=== PATIENT | male | born 1975 | race Caucasian/White ===

== ENCOUNTER 2017-07-20 09:20 | Inpatient (IN) | payer OTHER ==
[2017-07-20 09:37] VITALS: BMI 27.3
--- NOTE | 2017-07-20 11:36 | HP ---
COWS - Scale Resting Pulse: 0= [place] 80 or Below Sweatin= Chills/Flushing Restless Observation: 1= Difficult to Sit Still Pupil Size: 1= Pupils >than Normal Bone or Joint Aches: 1= Mild Discomfort Runny Nose/ Eye Tearin= Nasal Congestion GI Upset > 30mins: 3= Vomiting/Diarrhea Tremor Observation: 1= Tremor [place], Not Seen Yawning Observation: 1= 1-2x During Session Anxiety or Irritability: 2=Irritable/Anxious Goose Flesh Skin: 3=Piloerection COWS Score: 15 CIWA Score - CIWA Score Nausea/Vomitin Muscle Tremors: 3 Anxiety: 3 Agitation: 2 Paroxysmal Sweats: 1-Minimal Palms Moist Orientation: 0-Oriented Tacttile Disturbances: 1-Very Mild Itch/Numbness Auditory Disturbances: 0-None Visual Disturbances: 0-None Headache: 1-Very Mild CIWA-Ar Total Score: 16 Admission ROS BHS - HPI Chief Complaint: herin and benzodiazepine withdrwal sx Allergies/Adverse Reactions: Allergies Allergy/AdvReac Type Severity Reaction Status Date / Time No Known Allergies Allergy Verified 07/20/17 09:46 History of Present Illness: 41 y o m with h/o polysubstane use: alcohol, heorin and benzodiazepine use disorder with withdrawal sx requiring inpatient detoxification. PMHX depression , anxiety, insmonia, thirsty no siezures or SI no h/o DTS. smoke 1 PPD Exam Limitations: No Limitations - Ebola screening Have you traveled outside of the country in the last 21 days: No Have you had contact with anyone from an Ebola affected area: No Have you been sick,other than usual withdrawal symptoms: No Do you have a fever: No - Review of Systems Constitutional: Chills, Diaphoresis, Malaise, Night Sweats, Weakness, Unintentional Wgt. Loss EENT: reports: Tearing, Nose Congestion Respiratory: reports: No Symptoms reported Cardiac: reports: No Symptoms Reported GI: reports: Diarrhea, Nausea, Poor Appetite, Poor Fluid Intake, Rectal Bleeding , Vomiting, Indigestion : reports: No Symptoms Reported Musculoskeletal: reports: Back Pain, Joint Pain, Muscle Pain Integumentary: reports: Pruritus, Sweating Neuro: reports: Headache, Numbness, Tingling, Tremors Endocrine: reports: Increased Thirst Hematology: reports: No Symptoms Reported Psychiatric: reports: Judgement Intact, Mood/Affect Appropiate, Orientated x3, Anxious, Depressed Other Systems: Reviewed and Negative Patient History - Patient Medical History Hx Anemia: No Hx Asthma: No Hx Chronic Obstructive Pulmonary Disease (COPD): No Hx Cancer: No Hx Cardiac Disorders: No Hx Congestive Heart Failure: No Hx Hypertension: No Hx Hypercholesterolemia: No Hx Pacemaker: No HX Cerebrovascular Accident: No Hx Seizures: No Hx Dementia: No Hx Diabetes: No Hx Gastrointestinal Disorders: No Hx Liver Disease: No Hx Genitourinary Disorders: No Hx Sexually Transmitted Disorders: No Hx Renal Disease (ESRD): No Hx Thyroid Disease: No Hx Human Immunodeficiency Virus (HIV): No Hx Hepatitis C: No Hx Depression: No Hx Suicide Attempt: No Hx Bipolar Disorder: No Hx Schizophrenia: No - Patient Surgical History Past Surgical History: No Anesthesia Reaction: No - PPD History Previous Implant?: Yes Documented Results: Negative w/o proof PPD to be Administered?: Yes - Reproductive History Patient is a Female of Child Bearing Age (11 -55 yrs old): No Patient : No - Smoking Cessation Smoking history: Current every day smoker Have you smoked in the past 12 months: Yes Aproximately how many cigarettes per day: 20 Hx Chewing Tobacco Use: No Initiated information on smoking cessation: Yes 'Breaking Loose' booklet given: 07/20/17 - Substance & Tx. History Hx Alcohol Use: Yes Hx Substance Use: Yes Substance Use Type: Alcohol, Cocaine, Heroin, Marijuana, Opiates, Prescribed, Tranquilizers Hx Substance Use Treatment: Yes ([facility] 2008) - Substances Abused Alcohol Route: Oral Frequency: Daily Amount used: kay reynolds(1 pt)/malt liquor(1-40oz) Age of first use: 17 Date of Last Use: 07/18/17 Heroin Route: Injection Frequency: Daily Amount used: 15 bags Age of first use: 17 Date of Last Use: 07/19/17 Cocaine Route: Injection Frequency: Daily Amount used: $40 Age of first use: 20 Alprazolam (Xanax) Route: Oral Frequency: Daily Amount used: 2 stiks Age of first use: 22 Date of Last Use: 07/18/17 Family Disease History - Family Disease History Family History: Denies Family Disease History: Other: Grandparent (alcoholism) Admission Physical Exam BHS - Vital Signs Vital Signs: Vital Signs - 24 hr 07/20/17 09:35 Temperature 97.7 F Pulse Rate 67 Respiratory 18 Rate Blood Pressure 103/67 - Physical General Appearance: Yes: Nourished, Appropriately Dressed, Disheveled, Mild Distress, Tremorous, Irritable, Sweating, Anxious HEENTM: Yes: Within Normal Limits, EOMI, Hearing grossly Normal, Normal ENT Inspection, Normocephalic, Normal Voice, CHRISTIAN, Pharynx Normal, Nasal Congestion , Rhinorrhea Respiratory: Yes: Within Normal Limits, Chest Non-Tender, Lungs Clear, Normal Breath Sounds, No Respiratory Distress, No Accessory Muscle Use Neck: Yes: Within Normal Limits, No masses,lesions,Nodules, Supple, Trachea in good position Breast: Yes: Breast Exam Deferred Cardiology: Yes: Within Normal Limits, Regular Rhythm, Regular Rate, S1, S2 Abdominal: Yes: Within Normal Limits, Normal Bowel Sounds, Non Tender, Flat, Soft, Increased Bowel Sounds Genitourinary: Yes: Within Normal Limits Back: Yes: Normal Inspection, Muscle Spasm Musculoskeletal: Yes: full range of Motion, Gait Steady, Pelvis Stable, Back pain Extremities: Yes: Normal Capillary Refill, Normal Range of Motion, Non-Tender, Tremors Neurological: Yes: Within Normal Limits, freelance displayer II-XII NML intact, Fully Oriented, Alert, Motor Strength 5/5, Normal Response, Depressed Affect Lymphatic: Yes: Within Normal Limits - Addiitonal Findings: withdrawal sx - Diagnostic (1) Alcohol dependence with uncomplicated withdrawal Current Visit: Yes Status: Acute (2) Opioid dependence with withdrawal Current Visit: Yes Status: Acute (3) Sedative, hypnotic or anxiolytic dependence with withdrawal, uncomplicated Current Visit: Yes Status: Acute (4) Nicotine dependence Current Visit: Yes Status: Acute (5) Cannabis abuse Current Visit: Yes Status: Acute (6) Dehydration Current Visit: Yes Status: Acute (7) Depression Current Visit: Yes Status: Acute Cleared for Admission [facility] - Detox or Rehab [facility] Level of Care: Medically Managed Detox Regimen/Protocol: Methadone/Valium [facility] Breath Alcohol Content Breath Alcohol Content: 0 Urine Drug Screen - Results Drug Screen Negative: No Urine Drug Screen Results: LOLLY-Cocaine, OPI-Opiates, BZO-Benzodiazepines, OXY- Oxycodone
[2017-07-20] MEDS ORDERED: P-EPHED 60MG/TRIPROLIDI 2.5MG TABLET PO PRN (11:39)
[2017-07-20] MEDS ORDERED: MAGNESIUM HYDROX 2400MG/30ML ORAL SUSPENSION 30 ML CUP PO PRN (11:39)
[2017-07-20] MEDS ORDERED: hydrOXYzine PAMOATE 50 MG CAPSULE (FP) PO PRN (11:39)
[2017-07-20] MEDS ORDERED: MENTHOL/PHENOL 1 EACH UD MM PRN (11:39)
[2017-07-20] MEDS ORDERED: ACETAMINOPHEN 325 MG TABLET (FP) PO PRN (11:39)
[2017-07-20] MEDS ORDERED: MAGNESIUM CITRATE 300 ML BOTTLE PO PRN (11:39)
[2017-07-20] MEDS ORDERED: guaiFENesin/D-METHORPHAN HB 10 ML UNIT-DOSE CUPS PO PRN (11:39)
[2017-07-20] MEDS ORDERED: MAG HYDROX/AL HYDROX/SIMETH 30 ML UNIT-DOSE CUP PO PRN (11:39)
[2017-07-20] MEDS ORDERED: NICOTINE POLACRILEX 4 MG GUM BUC PRN (11:39)
[2017-07-20] MEDS ORDERED: LOPERAMIDE HCL 2 MG CAPSULE PO PRN (11:39)
[2017-07-20] MEDS ORDERED: IBUPROFEN 400 MG TABLET (FP) PO PRN (11:39)
[2017-07-20] MEDS ORDERED: METHADONE HCL 10 MG TABLET (FOR DETOX USE ONLY) PO ONE ×2 (12:25→23:00)
[2017-07-20] MEDS ORDERED: diazePAM 5 MG TABLET PO ONE (12:25)
[2017-07-20] MEDS: NICOTINE 21 MG/24 HOURS TOPICAL PATCH TD SCH (13:04)
[2017-07-20] MEDS: diazePAM 5 MG TABLET PO SCH ×2 (15:17→22:28)
--- NOTE | 2017-07-20 16:16 | CONSULT ---
[facility] Psychiatric Consult - Data Date of interview: 07/20/17 Admission source: [facility] Identifying data: Pt. is a 41 year old single male, father of two, and currently unemployed. This is patient's first admission to [facility]. Pt. admitted to [facility] for heroin, cocaine, alcohol and xanac dependence. Substance Abuse History: Following information confirmed with Mr. Mcdowell: Smoking Cessation. Smoking history: Current every day smoker. Have you smoked in the past 12 months: Yes. Aproximately how many cigarettes per day: 20. Hx Chewing Tobacco Use: No. Initiated information on smoking cessation: Yes. ' Breaking Loose' booklet given: 07/20/17. - Substance & Tx. History. Hx Alcohol Use: Yes. Hx Substance Use: Yes. Substance Use Type: Alcohol, Cocaine , Heroin, Marijuana, Opiates, Prescribed, Tranquilizers. Hx Substance Use Treatment: Yes ([facility] 2008). - Substances Abused. Alcohol. Route: Oral. Frequency: Daily. Amount used: kay reynolds(1 pt)/[employer] liquor(1-40oz). Age of first use: 17. Date of Last Use: 07/18/17. Heroin. Route: Injection. Frequency: Daily. Amount used: 15 bags. Age of first use: 17. Date of Last Use: 07/19/17. Cocaine. Route: Injection. Frequency: Daily. Amount used: $40. Age of first use: 20. Alprazolam (Xanax). Route: Oral. Frequency: Daily. Amount used: 2 stiks. Age of first use: 22. Date of Last Use: 07/18/17 Medical History: Denies. Psychiatric History: Pt. denies h/o psychiatric hospitalizations, suicide attempts, and outpatient care. Physical/Sexual Abuse/Trauma History: Denies. Mental Status Exam - Mental Status Exam Alert and Oriented to: Time, Place, Person Cognitive Function: Good Patient Appearance: Well Groomed Mood: Euthymic Affect: Mood Congruent Patient Behavior: Appropriate, Cooperative Speech Pattern: Appropriate Voice Loudness: Normal Thought Process: Goal Oriented Thought Disorder: Not Present Hallucinations: Denies Suicidal Ideation: Denies Homicidal Ideation: Denies Insight/Judgement: Poor Sleep: Poorly Appetite: Fair Muscle strength/Tone: Normal Gait/Station: Normal Psychiatric Findings - Problem List ([place] 1, 2,3) (1) Insomnia Current Visit: Yes Status: Acute (2) Alcohol dependence with uncomplicated withdrawal Current Visit: Yes Status: Acute (3) Nicotine dependence Current Visit: Yes Status: Acute (4) Opioid dependence with withdrawal Current Visit: Yes Status: Acute (5) Sedative, hypnotic or anxiolytic dependence with withdrawal, uncomplicated Current Visit: Yes Status: Acute - Initial Treatment Plan Initial Treatment Plan: Psychoeducation provided. Detoxification in progress. Benadryl 50mg qhs ordered. Benefits and side effects discussed. Verbal consent given. Will continue to monitor.
[2017-07-20 16:53] LABS: URINE APPEARANCE CLEAR; URINE BILIRUBIN NEGATIVE (NEGATIVE); URINE BLOOD NEGATIVE (NEGATIVE); URINE COLOR LTYELLOW; URINE GLUCOSE (UA) NEGATIVE (NEGATIVE); URINE KETONE NEGATIVE (NEGATIVE); URINE LEUK ESTERASE NEGATIVE (NEGATIVE); URINE NITRITE NEGATIVE (NEGATIVE); URINE PROTEIN NEGATIVE (NEGATIVE); URINE UROBILINOGEN NEGATIVE mg/dL (0.2-1.0)
[2017-07-20] MEDS: diazePAM 5 MG TABLET PO PRN (16:58)
[2017-07-20] MEDS: THIAMINE HCL 100 MG TABLET (FP) PO SCH (22:28)
[2017-07-20] MEDS: diphenhydrAMINE HCL 50 MG CAPSULE PO PRN (22:29)
[2017-07-21] MEDS: diazePAM 5 MG TABLET PO SCH ×3 (05:24→21:52)
[2017-07-21] MEDS: diazePAM 5 MG TABLET PO PRN ×3 (07:31→17:42)
[2017-07-21] MEDS ORDERED: METHADONE HCL 10 MG TABLET (FOR DETOX USE ONLY) PO SCH (10:00)
[2017-07-21 10:11] LABS: CHLORIDE 106 mmol/L (98-107); POTASSIUM 4.5 mmol/L (3.5-5.1); SODIUM 138 mmol/L (136-145)
[2017-07-21 10:13] LABS: HEMATOCRIT 40.5 % (35.4-49); HEMOGLOBIN 13.2 GM/dL (11.7-16.9); MCH 27.7 pg (25.7-33.7); MCHC 32.5 g/dl (32.0-35.9); MEAN CELL VOLUME 85.3 fl (80-96); MEAN PLT VOLUME 9.6 fl (7.5-11.1); PLATELET COUNT 283 K/MM3 (134-434); RBC 4.76 M/mm3 (4.00-5.60); RDW 13.8 % (11.9-15.9); WHITE BLOOD COUNT 5.2 K/mm3 (4.0-10.0)
[2017-07-21] MEDS: PRENATAL VITAMINS W/ FOLIC ACID TABLET (FP) PO SCH (10:23)
[2017-07-21] MEDS: NICOTINE 21 MG/24 HOURS TOPICAL PATCH TD SCH (10:23)
[2017-07-21 10:36] LABS: ALK PHOS 73 U/L (45-117); ANION GAP 5 (8-16); BILIRUBIN,TOTAL 0.3 mg/dL (0.2-1.0); BLOOD UREA NITROGEN 18 mg/dL (7-18); CALCIUM 8.7 mg/dL (8.5-10.1); CO2 27 mmol/L (21-32); CREATININE 1.1 mg/dL (0.7-1.3); GLUCOSE,RANDOM 101 mg/dL (74-106); SGOT/AST 16 U/L (15-37); SGPT/ALT 24 U/L (12-78); TOT PROT 7.9 g/dl (6.4-8.2)
[2017-07-21 11:02] LABS: SICKLE CELL SCREEN NEGATIVE (NEGATIVE)
--- NOTE | 2017-07-21 21:24 | PN ---
S CIWA - CIWA Score Nausea/Vomitin Muscle Tremors: 3 Anxiety: 3 Agitation: 3 Paroxysmal Sweats: 3 Orientation: 0-Oriented Tacttile Disturbances: 0-None Auditory Disturbances: 0-None Visual Disturbances: 0-None Headache: 0-None Present CIWA-Ar Total Score: 15 BHS COWS - Scale Resting Pulse: 1= [place] 81-100 Sweatin=Flushed/Facial Moisture Restless Observation: 1= Difficult to Sit Still Pupil Size: 0= Normal to Room Light Bone or Joint Aches: 1= Mild Discomfort Runny Nose/ Eye Tearin= Nasal Congestion GI Upset > 30mins: 1= Stomach Cramp Tremor Observation of Outstretched Hands: 2= Slight Tremor Visible Yawning Observation: 1= 1-2x During Session Anxiety or Irritability: 2=Irritable/Anxious Goose Flesh Skin: 0=Smooth Skin COWS Score: 12 S Progress Note (SOAP) Subjective: tremors sweats abd cramp Objective: 07/21/17 21:22 Vital Signs 07/21/17 07/21/17 14:52 18:15 Temperature 99.3 F 97.9 F Pulse Rate 88 64 Respiratory 18 18 Rate Blood Pressure 116/71 125/60 Laboratory Last Values WBC 5.2 K/mm3 (4.0-10.0) 07/21/17 06:20 RBC 4.76 M/mm3 (4.00-5.60) 07/21/17 06:20 Hgb 13.2 GM/dL (11.7-16.9) 07/21/17 06:20 Hct 40.5 % (35.4-49) 07/21/17 06:20 MCV 85.3 fl (80-96) 07/21/17 06:20 MCH 27.7 pg (25.7-33.7) 07/21/17 06:20 MCHC 32.5 g/dl (32.0-35.9) 07/21/17 06:20 RDW 13.8 % (11.9-15.9) 07/21/17 06:20 Plt Count 283 K/MM3 (134-434) 07/21/17 06:20 MPV 9.6 fl (7.5-11.1) 07/21/17 06:20 Sickle Cell Screen Negative (NEGATIVE) 07/21/17 06:20 Sodium 138 mmol/L (136-145) 07/21/17 06:20 Potassium 4.5 mmol/L (3.5-5.1) 07/21/17 06:20 Chloride 106 mmol/L (98-107) 07/21/17 06:20 Carbon Dioxide 27 mmol/L (21-32) 07/21/17 06:20 Anion Gap 5 (8-16) L 07/21/17 06:20 BUN 18 mg/dL (7-18) 07/21/17 06:20 Creatinine 1.1 mg/dL (0.7-1.3) 07/21/17 06:20 Creat Clearance w eGFR > 60 (>60) 07/21/17 06:20 Random Glucose 101 mg/dL (74-106) 07/21/17 06:20 Calcium 8.7 mg/dL (8.5-10.1) 07/21/17 06:20 Total Bilirubin 0.3 mg/dL (0.2-1.0) 07/21/17 06:20 AST 16 U/L (15-37) 07/21/17 06:20 ALT 24 U/L (12-78) 07/21/17 06:20 Alkaline Phosphatase 73 U/L (45-117) 07/21/17 06:20 Total Protein 7.9 g/dl (6.4-8.2) 07/21/17 06:20 Albumin 4.0 g/dl (3.4-5.0) 07/21/17 06:20 Urine Color Ltyellow 07/20/17 14:45 Urine Appearance Clear 07/20/17 14:45 Urine pH 6.0 (5.0-8.0) 07/20/17 14:45 Ur Specific [place] 1.013 (1.001-1.035) 07/20/17 14:45 Urine Protein Negative (NEGATIVE) 07/20/17 14:45 Urine Glucose (UA) Negative (NEGATIVE) 07/20/17 14:45 Urine Ketones Negative (NEGATIVE) 07/20/17 14:45 Urine Blood Negative (NEGATIVE) 07/20/17 14:45 Urine Nitrite Negative (NEGATIVE) 07/20/17 14:45 Urine Bilirubin Negative (NEGATIVE) 07/20/17 14:45 Urine Urobilinogen Negative mg/dL (0.2-1.0) 07/20/17 14:45 Ur Leukocyte Esterase Negative (NEGATIVE) 07/20/17 14:45 RPR Titer Nonreactive (NONREACTIVE) 07/21/17 06:20 Hepatitis C Antibody <0.1 s/co ratio (0.0-0.9) 07/20/17 11:50 labs noted Assessment: 07/21/17 21:24 withdrawal sx Plan: continue detox
[2017-07-21] MEDS: diphenhydrAMINE HCL 50 MG CAPSULE PO PRN (21:52)
[2017-07-21] MEDS: THIAMINE HCL 100 MG TABLET (FP) PO SCH (21:52)
[2017-07-22] MEDS: diazePAM 5 MG TABLET PO PRN ×4 (03:17→17:28)
[2017-07-22] MEDS: diazePAM 5 MG TABLET PO SCH ×2 (10:13→22:12)
[2017-07-22] MEDS: PRENATAL VITAMINS W/ FOLIC ACID TABLET (FP) PO SCH (10:13)
[2017-07-22] MEDS: METHADONE HCL 5 MG TABLET (FOR DETOX USE ONLY) PO SCH (10:13)
[2017-07-22] MEDS: NICOTINE 21 MG/24 HOURS TOPICAL PATCH TD SCH (10:13)
--- NOTE | 2017-07-22 14:47 | PN ---
[facility] CIWA - CIWA Score Nausea/Vomitin-No Nausea/No Vomiting Muscle Tremors: 4-Moderate,w/Arms Extend Anxiety: 3 Agitation: 4-Moderately Restless Paroxysmal Sweats: 1-Minimal Palms Moist Orientation: 0-Oriented Tacttile Disturbances: 0-None Auditory Disturbances: 0-None Visual Disturbances: 0-None Headache: 0-None Present CIWA-Ar Total Score: 12 BHS COWS - Scale Resting Pulse: 0= [place] 80 or Below Sweatin= Chills/Flushing Restless Observation: 1= Difficult to Sit Still Pupil Size: 0= Normal to Room Light Bone or Joint Aches: 2= Severe Diffuse Aches Runny Nose/ Eye Tearin= Nasal Congestion GI Upset > 30mins: 1= Stomach Cramp Tremor Observation of Outstretched Hands: 2= Slight Tremor Visible Yawning Observation: 0= None Anxiety or Irritability: 2=Irritable/Anxious Goose Flesh Skin: 0=Smooth Skin COWS Score: 10 S Progress Note (SOAP) Subjective: sweat tremor anxiety restlessness irritable joint ache Objective: 07/22/17 14:46 Vital Signs Temperature 98.4 F 07/22/17 14:19 Pulse Rate 72 07/22/17 14:19 Respiratory Rate 20 07/22/17 14:19 Blood Pressure 108/64 07/22/17 14:19 O2 Sat by Pulse Oximetry (%) Laboratory Last Values WBC 5.2 K/mm3 (4.0-10.0) 07/21/17 06:20 RBC 4.76 M/mm3 (4.00-5.60) 07/21/17 06:20 Hgb 13.2 GM/dL (11.7-16.9) 07/21/17 06:20 Hct 40.5 % (35.4-49) 07/21/17 06:20 MCV 85.3 fl (80-96) 07/21/17 06:20 MCH 27.7 pg (25.7-33.7) 07/21/17 06:20 MCHC 32.5 g/dl (32.0-35.9) 07/21/17 06:20 RDW 13.8 % (11.9-15.9) 07/21/17 06:20 Plt Count 283 K/MM3 (134-434) 07/21/17 06:20 MPV 9.6 fl (7.5-11.1) 07/21/17 06:20 Sickle Cell Screen Negative (NEGATIVE) 07/21/17 06:20 Sodium 138 mmol/L (136-145) 07/21/17 06:20 Potassium 4.5 mmol/L (3.5-5.1) 07/21/17 06:20 Chloride 106 mmol/L (98-107) 07/21/17 06:20 Carbon Dioxide 27 mmol/L (21-32) 07/21/17 06:20 Anion Gap 5 (8-16) L 07/21/17 06:20 BUN 18 mg/dL (7-18) 07/21/17 06:20 Creatinine 1.1 mg/dL (0.7-1.3) 07/21/17 06:20 Creat Clearance w eGFR > 60 (>60) 07/21/17 06:20 Random Glucose 101 mg/dL (74-106) 07/21/17 06:20 Calcium 8.7 mg/dL (8.5-10.1) 07/21/17 06:20 Total Bilirubin 0.3 mg/dL (0.2-1.0) 07/21/17 06:20 AST 16 U/L (15-37) 07/21/17 06:20 ALT 24 U/L (12-78) 07/21/17 06:20 Alkaline Phosphatase 73 U/L (45-117) 07/21/17 06:20 Total Protein 7.9 g/dl (6.4-8.2) 07/21/17 06:20 Albumin 4.0 g/dl (3.4-5.0) 07/21/17 06:20 Urine Color Ltyellow 07/20/17 14:45 Urine Appearance Clear 07/20/17 14:45 Urine pH 6.0 (5.0-8.0) 07/20/17 14:45 Ur Specific [place] 1.013 (1.001-1.035) 07/20/17 14:45 Urine Protein Negative (NEGATIVE) 07/20/17 14:45 Urine Glucose (UA) Negative (NEGATIVE) 07/20/17 14:45 Urine Ketones Negative (NEGATIVE) 07/20/17 14:45 Urine Blood Negative (NEGATIVE) 07/20/17 14:45 Urine Nitrite Negative (NEGATIVE) 07/20/17 14:45 Urine Bilirubin Negative (NEGATIVE) 07/20/17 14:45 Urine Urobilinogen Negative mg/dL (0.2-1.0) 07/20/17 14:45 Ur Leukocyte Esterase Negative (NEGATIVE) 07/20/17 14:45 RPR Titer Nonreactive (NONREACTIVE) 07/21/17 06:20 Hepatitis C Antibody <0.1 s/co ratio (0.0-0.9) 07/20/17 11:50 lab noted Assessment: 07/22/17 14:46 withdrawal sx Plan: continue detox
[2017-07-22] MEDS: THIAMINE HCL 100 MG TABLET (FP) PO SCH (22:12)
[2017-07-23] MEDS: diazePAM 5 MG TABLET PO PRN ×2 (02:28→06:49)
[2017-07-23] MEDS: NICOTINE 21 MG/24 HOURS TOPICAL PATCH TD SCH (10:23)
[2017-07-23] MEDS: PRENATAL VITAMINS W/ FOLIC ACID TABLET (FP) PO SCH (10:23)
[2017-07-23] MEDS: diazePAM 5 MG TABLET PO SCH (10:23)
[2017-07-23] MEDS: METHADONE HCL 5 MG TABLET (FOR DETOX USE ONLY) PO SCH (10:23)
--- NOTE | 2017-07-23 10:59 | PN ---
BHS Progress Note (SOAP) Subjective: joint ache sweat tremor restlessness Objective: 07/23/17 10:58 Vital Signs Temperature 97.7 F 07/23/17 07:19 Pulse Rate 52 L 07/23/17 07:19 Respiratory Rate 16 07/23/17 07:19 Blood Pressure 94/63 07/23/17 07:19 O2 Sat by Pulse Oximetry (%) Laboratory Last Values WBC 5.2 K/mm3 (4.0-10.0) 07/21/17 06:20 RBC 4.76 M/mm3 (4.00-5.60) 07/21/17 06:20 Hgb 13.2 GM/dL (11.7-16.9) 07/21/17 06:20 Hct 40.5 % (35.4-49) 07/21/17 06:20 MCV 85.3 fl (80-96) 07/21/17 06:20 MCH 27.7 pg (25.7-33.7) 07/21/17 06:20 MCHC 32.5 g/dl (32.0-35.9) 07/21/17 06:20 RDW 13.8 % (11.9-15.9) 07/21/17 06:20 Plt Count 283 K/MM3 (134-434) 07/21/17 06:20 MPV 9.6 fl (7.5-11.1) 07/21/17 06:20 Sickle Cell Screen Negative (NEGATIVE) 07/21/17 06:20 Sodium 138 mmol/L (136-145) 07/21/17 06:20 Potassium 4.5 mmol/L (3.5-5.1) 07/21/17 06:20 Chloride 106 mmol/L (98-107) 07/21/17 06:20 Carbon Dioxide 27 mmol/L (21-32) 07/21/17 06:20 Anion Gap 5 (8-16) L 07/21/17 06:20 BUN 18 mg/dL (7-18) 07/21/17 06:20 Creatinine 1.1 mg/dL (0.7-1.3) 07/21/17 06:20 Creat Clearance w eGFR > 60 (>60) 07/21/17 06:20 Random Glucose 101 mg/dL (74-106) 07/21/17 06:20 Calcium 8.7 mg/dL (8.5-10.1) 07/21/17 06:20 Total Bilirubin 0.3 mg/dL (0.2-1.0) 07/21/17 06:20 AST 16 U/L (15-37) 07/21/17 06:20 ALT 24 U/L (12-78) 07/21/17 06:20 Alkaline Phosphatase 73 U/L (45-117) 07/21/17 06:20 Total Protein 7.9 g/dl (6.4-8.2) 07/21/17 06:20 Albumin 4.0 g/dl (3.4-5.0) 07/21/17 06:20 Urine Color Ltyellow 07/20/17 14:45 Urine Appearance Clear 07/20/17 14:45 Urine pH 6.0 (5.0-8.0) 07/20/17 14:45 Ur Specific [place] 1.013 (1.001-1.035) 07/20/17 14:45 Urine Protein Negative (NEGATIVE) 07/20/17 14:45 Urine Glucose (UA) Negative (NEGATIVE) 07/20/17 14:45 Urine Ketones Negative (NEGATIVE) 07/20/17 14:45 Urine Blood Negative (NEGATIVE) 07/20/17 14:45 Urine Nitrite Negative (NEGATIVE) 07/20/17 14:45 Urine Bilirubin Negative (NEGATIVE) 07/20/17 14:45 Urine Urobilinogen Negative mg/dL (0.2-1.0) 07/20/17 14:45 Ur Leukocyte Esterase Negative (NEGATIVE) 07/20/17 14:45 RPR Titer Nonreactive (NONREACTIVE) 07/21/17 06:20 Hepatitis C Antibody <0.1 s/co ratio (0.0-0.9) 07/20/17 11:50 lab noted Assessment: 07/23/17 10:58 withdrawal sx Plan: continue detox
[2017-07-23] MEDS ORDERED: diazePAM 5 MG TABLET PO ONE (12:41)
[2017-07-23 13:35] VITALS: BP 115/60; PULSE 77; TEMP 98.6
--- NOTE | 2017-07-23 17:07 | DS ---
[facility] Detox Discharge Summary Admission Date: 07/20/17 Discharge Date: 07/23/17 - History Present History: Alcohol Dependence, Cannabis Dependence, Opioid Dependence, Sedative Dependence - Physical Exam Results Vital Signs: Vital Signs Temperature 98.6 F 07/23/17 13:35 Pulse Rate 77 07/23/17 13:35 Respiratory Rate 18 07/23/17 13:35 Blood Pressure 115/60 07/23/17 13:35 O2 Sat by Pulse Oximetry (%) Pertinent Admission Physical Exam Findings: Vital Signs Temperature 98.6 F 07/23/17 13:35 Pulse Rate 77 07/23/17 13:35 Respiratory Rate 18 07/23/17 13:35 Blood Pressure 115/60 07/23/17 13:35 O2 Sat by Pulse Oximetry (%) Laboratory Last Values WBC 5.2 K/mm3 (4.0-10.0) 07/21/17 06:20 RBC 4.76 M/mm3 (4.00-5.60) 07/21/17 06:20 Hgb 13.2 GM/dL (11.7-16.9) 07/21/17 06:20 Hct 40.5 % (35.4-49) 07/21/17 06:20 MCV 85.3 fl (80-96) 07/21/17 06:20 MCH 27.7 pg (25.7-33.7) 07/21/17 06:20 MCHC 32.5 g/dl (32.0-35.9) 07/21/17 06:20 RDW 13.8 % (11.9-15.9) 07/21/17 06:20 Plt Count 283 K/MM3 (134-434) 07/21/17 06:20 MPV 9.6 fl (7.5-11.1) 07/21/17 06:20 Sickle Cell Screen Negative (NEGATIVE) 07/21/17 06:20 Sodium 138 mmol/L (136-145) 07/21/17 06:20 Potassium 4.5 mmol/L (3.5-5.1) 07/21/17 06:20 Chloride 106 mmol/L (98-107) 07/21/17 06:20 Carbon Dioxide 27 mmol/L (21-32) 07/21/17 06:20 Anion Gap 5 (8-16) L 07/21/17 06:20 BUN 18 mg/dL (7-18) 07/21/17 06:20 Creatinine 1.1 mg/dL (0.7-1.3) 07/21/17 06:20 Creat Clearance w eGFR > 60 (>60) 07/21/17 06:20 Random Glucose 101 mg/dL (74-106) 07/21/17 06:20 Calcium 8.7 mg/dL (8.5-10.1) 07/21/17 06:20 Total Bilirubin 0.3 mg/dL (0.2-1.0) 07/21/17 06:20 AST 16 U/L (15-37) 07/21/17 06:20 ALT 24 U/L (12-78) 07/21/17 06:20 Alkaline Phosphatase 73 U/L (45-117) 07/21/17 06:20 Total Protein 7.9 g/dl (6.4-8.2) 07/21/17 06:20 Albumin 4.0 g/dl (3.4-5.0) 07/21/17 06:20 Urine Color Ltyellow 07/20/17 14:45 Urine Appearance Clear 07/20/17 14:45 Urine pH 6.0 (5.0-8.0) 07/20/17 14:45 Ur Specific [place] 1.013 (1.001-1.035) 07/20/17 14:45 Urine Protein Negative (NEGATIVE) 07/20/17 14:45 Urine Glucose (UA) Negative (NEGATIVE) 07/20/17 14:45 Urine Ketones Negative (NEGATIVE) 07/20/17 14:45 Urine Blood Negative (NEGATIVE) 07/20/17 14:45 Urine Nitrite Negative (NEGATIVE) 07/20/17 14:45 Urine Bilirubin Negative (NEGATIVE) 07/20/17 14:45 Urine Urobilinogen Negative mg/dL (0.2-1.0) 07/20/17 14:45 Ur Leukocyte Esterase Negative (NEGATIVE) 07/20/17 14:45 RPR Titer Nonreactive (NONREACTIVE) 07/21/17 06:20 Hepatitis C Antibody <0.1 s/co ratio (0.0-0.9) 07/20/17 11:50 - Treatment Patient has Accepted a Rehab Referral to: as per patient, he was accepted to [facility] - Medication Discharge Medications: Ambulatory Orders NK [No Known Home Medication] 07/20/17 - Diagnosis (1) Alcohol dependence with uncomplicated withdrawal Current Visit: Yes Status: Acute (2) Cannabis abuse Current Visit: Yes Status: Chronic (3) Nicotine dependence Current Visit: Yes Status: Chronic Qualifiers: Nicotine product type: cigarettes (4) Opioid dependence with withdrawal Current Visit: Yes Status: Acute (5) Sedative, hypnotic or anxiolytic dependence with withdrawal, uncomplicated Current Visit: Yes Status: Acute - AMA Did Patient Leave Against Medical Advice: Yes
[2017-07-24] MEDS ORDERED: METHADONE HCL 10 MG TABLET (FOR DETOX USE ONLY) PO SCH (10:00)
[2017-07-24] MEDS ORDERED: diazePAM 5 MG TABLET PO SCH (10:00)
--- NOTE | 2017-07-24 13:37 | EKG ---
Test Reason : Blood Pressure : / mmHG Vent. Rate : 066 BPM Atrial Rate : 066 BPM P-R Int : 128 ms QRS Dur : 088 ms QT Int : 424 ms P-R-T Axes : 022 042 020 degrees QTc Int : 444 ms NORMAL SINUS RHYTHM NORMAL ECG NO PREVIOUS ECGS AVAILABLE Confirmed by MD Art, José Miguel ([id number]) on 07/24/2017 1:37:14 PM Referred By: Confirmed By:José Miguel Cordova MD
[2017-07-25] MEDS ORDERED: METHADONE HCL 5 MG TABLET (FOR DETOX USE ONLY) PO SCH (06:00)
== END 2017-07-23 17:10 | disposition left against medical advice (07) | DRG 770 ==
LOC: YASAS 09:20 → Y6N 11:51
PROVIDERS: ADMIT Internal Medicine; ATTEND Internal Medicine
PROC: HZ2ZZZZ Detoxification Services for Substance Abuse Treatment (ICD-10-PCS; principal; 2017-07-20)
DX: F11.23 Opioid dependence with withdrawal (principal); F13.230 Sedative, hypnotic or anxiolytic dependence with withdrawal, uncomplicated; F10.230 Alcohol dependence with withdrawal, uncomplicated; F12.20 Cannabis dependence, uncomplicated; F17.210 Nicotine dependence, cigarettes, uncomplicated; G47.00 Insomnia, unspecified
CPT/HCPCS: 36415; 80053; 81003; 85027; 85660; 86593; 86803; 93005; 93010

== ENCOUNTER 2017-07-25 15:19 | Inpatient (IN) | payer OTHER ==
[2017-07-25 15:55] VITALS: BMI 27.3
--- NOTE | 2017-07-25 17:14 | HP ---
Admission ROS [facility] - [facility] Chief Complaint: 41 yo m requesting inpatient rehab for opioid use Allergies/Adverse Reactions: Allergies Allergy/AdvReac Type Severity Reaction Status Date / Time No Known Allergies Allergy Verified 07/25/17 17:06 History of Present Illness: 41 yo m signed out ama last week from detox before completing methadone detox, but was detoxed from benzos and has not used benzodiazepine since, reports herion use and would like to start MAT with suboxone in rehab [facility]. last used heroin today, no benzos no si at this time, no h /o seizures or DTs. c/ insomnia Exam Limitations: No Limitations - Ebola screening Have you traveled outside of the country in the last 21 days: No Have you had contact with anyone from an Ebola affected area: No Have you been sick,other than usual withdrawal symptoms: No - Review of Systems Constitutional: No Symptoms Reported EENT: reports: No Symptoms Reported Respiratory: reports: No Symptoms reported Cardiac: reports: No Symptoms Reported GI: reports: No Symptoms Reported : reports: No Symptoms Reported Musculoskeletal: reports: No Symptoms Reported Integumentary: reports: No Symptoms Reported Endocrine: reports: Increased Thirst Hematology: reports: No Symptoms Reported Psychiatric: reports: Judgement Intact, Mood/Affect Appropiate, Orientated x3, Anxious, Depressed Other Systems: Reviewed and Negative Patient History - Patient Medical History Hx Anemia: No Hx Asthma: No Hx Chronic Obstructive Pulmonary Disease (COPD): No Hx Cancer: No Hx Cardiac Disorders: No Hx Congestive Heart Failure: No Hx Hypertension: No Hx Hypercholesterolemia: No Hx Pacemaker: No HX Cerebrovascular Accident: No Hx Seizures: No Hx Dementia: No Hx Diabetes: No Hx Gastrointestinal Disorders: No Hx Liver Disease: No Hx Genitourinary Disorders: No Hx Sexually Transmitted Disorders: No Hx Renal Disease (ESRD): No Hx Thyroid Disease: No Hx Human Immunodeficiency Virus (HIV): No Hx Hepatitis C: No Hx Depression: No Hx Suicide Attempt: No Hx Bipolar Disorder: No Hx Schizophrenia: No - Patient Surgical History Past Surgical History: No Anesthesia Reaction: No - PPD History Date: 07/22/17 PPD to be Administered?: No - Reproductive History Patient is a Female of Child Bearing Age (11 -55 yrs old): No Patient : No - Smoking Cessation Smoking history: Current every day smoker Have you smoked in the past 12 months: Yes Aproximately how many cigarettes per day: 20 Hx Chewing Tobacco Use: No Initiated information on smoking cessation: Yes 'Breaking Loose' booklet given: 07/25/17 - Substance & Tx. History Hx Alcohol Use: No Hx Substance Use: Yes Substance Use Type: Cocaine, Heroin, Opiates, Prescribed, Tranquilizers Hx Substance Use Treatment: Yes (detox [facility] last week heori and benzos) - Substances Abused Heroin Route: Injection Frequency: Daily Amount used: 3 bags Age of first use: 17 Date of Last Use: 07/25/17 Cocaine Route: Smoking Frequency: 1-2 times per week Amount used: $3 Age of first use: 19 Date of Last Use: 07/23/17 Benzodiazepine (Klonopin) Route: Oral Frequency: 1-3 times last 30 days Amount used: 2-4mg xanax daily Age of first use: 19 Date of Last Use: 06/28/17 Family Disease History - Family Disease History Family Disease History: Other: Grandparent (alcoholism) Admission Physical Exam [facility] - Vital Signs Vital Signs: Vital Signs - 24 hr 07/25/17 15:48 Temperature 98 F Pulse Rate 92 H Respiratory 18 Rate Blood Pressure 132/84 - Physical General Appearance: Yes: Within Normal Limits, No Apparent Distress, Nourished, Appropriately Dressed, Disheveled HEENTM: Yes: Within Normal Limits, EOMI, Hearing grossly Normal, Normal ENT Inspection, Normocephalic, Normal Voice, CHRISTIAN, Pharynx Normal Respiratory: Yes: Within Normal Limits, Chest Non-Tender, Lungs Clear, Normal Breath Sounds, No Respiratory Distress, No Accessory Muscle Use Neck: Yes: Within Normal Limits, No masses,lesions,Nodules, Supple, Trachea in good position Breast: Yes: Breast Exam Deferred Cardiology: Yes: Within Normal Limits, Regular Rhythm, Regular Rate, S1, S2 Abdominal: Yes: Within Normal Limits, Normal Bowel Sounds, Non Tender, Flat, Soft, Increased Bowel Sounds Genitourinary: Yes: Within Normal Limits Back: Yes: Within Normal Limits, Normal Inspection Musculoskeletal: Yes: Within Normal Limits, full range of Motion, Gait Steady, Pelvis Stable Extremities: Yes: Within Normal Limits, Normal Capillary Refill, Normal Inspection, Normal Range of Motion, Non-Tender Neurological: Yes: law writer II-XII NML intact, Fully Oriented, Alert, Motor Strength 5/5, Normal Response, Depressed Affect Integumentary: Yes: Within Normal Limits, Normal Color, Warm, Track Steiner (no infection no abscess) Lymphatic: Yes: Within Normal Limits - Addiitonal Findings: no withdrawal sx noted, dehydrated - Diagnostic (1) Dehydration Current Visit: No Status: Acute (2) Depression Current Visit: No Status: Acute (3) Insomnia Current Visit: No Status: Acute (4) Cannabis abuse Current Visit: No Status: Inactive (5) Nicotine dependence Current Visit: No Status: Chronic Qualifiers: Nicotine product type: cigarettes (6) Opioid dependence Current Visit: Yes Status: Acute (7) Cocaine abuse Current Visit: Yes Status: Acute [facility] Breath Alcohol Content Breath Alcohol Content: 0 Urine Drug Screen - Results Drug Screen Negative: No Urine Drug Screen Results: LOLLY-Cocaine, OPI-Opiates, BZO-Benzodiazepines, MTD- Methadone
[2017-07-25] MEDS ORDERED: LOPERAMIDE HCL 2 MG CAPSULE PO PRN (17:17)
[2017-07-25] MEDS ORDERED: MAG HYDROX/AL HYDROX/SIMETH 30 ML UNIT-DOSE CUP PO PRN (17:17)
[2017-07-25] MEDS ORDERED: ACETAMINOPHEN 325 MG TABLET (FP) PO PRN (17:17)
[2017-07-25] MEDS ORDERED: guaiFENesin/D-METHORPHAN HB 10 ML UNIT-DOSE CUPS PO PRN (17:17)
[2017-07-25] MEDS ORDERED: MAGNESIUM CITRATE 300 ML BOTTLE PO PRN (17:17)
[2017-07-25] MEDS ORDERED: IBUPROFEN 400 MG TABLET (FP) PO PRN (17:17)
[2017-07-25] MEDS ORDERED: MAGNESIUM HYDROX 2400MG/30ML ORAL SUSPENSION 30 ML CUP PO PRN (17:17)
[2017-07-25] MEDS ORDERED: NICOTINE POLACRILEX 4 MG GUM BC PRN (17:17)
[2017-07-25] MEDS ORDERED: P-EPHED 60MG/TRIPROLIDI 2.5MG TABLET PO PRN (17:17)
[2017-07-25] MEDS ORDERED: MENTHOL/PHENOL 1 EACH UD MM PRN (17:17)
[2017-07-25] MEDS ORDERED: ONDANSETRON *ODT* 4 MG TABLET SL PRN (17:19)
[2017-07-25] MEDS ORDERED: COLLOIDAL OATMEAL 1 BAR EACH TP PRN (17:25)
[2017-07-25] MEDS: cloNIDine HCL 0.1 MG TABLET PO SCH (21:54)
[2017-07-25] MEDS: THIAMINE HCL 100 MG TABLET (FP) PO SCH (21:54)
[2017-07-25] MEDS: NAPROXEN 500 MG TABLET (FP) PO SCH (21:54)
[2017-07-25] MEDS: AMITRIPTYLINE HCL 25 MG TABLET (FP) PO SCH (21:54)
[2017-07-25] MEDS: GABAPENTIN 100 MG CAPSULE (FP) PO SCH (21:54)
[2017-07-25] MEDS: CYCLOBENZAPRINE HCL 10 MG TABLET (FP) PO SCH (21:54)
[2017-07-25] MEDS: DOCUSATE SODIUM 100 MG CAPSULE (FP) PO SCH (21:54)
[2017-07-25] MEDS: PANTOPRAZOLE 40 MG TABLET (FP) PO SCH (21:55)
[2017-07-25] MEDS: NICOTINE 21 MG/24 HOURS TOPICAL PATCH TD SCH (21:55)
[2017-07-25] MEDS: HYDROCORTISONE 1% TOPICAL OINT 30 GM TUBE TP SCH (22:00)
[2017-07-26] MEDS: GABAPENTIN 100 MG CAPSULE (FP) PO SCH ×3 (07:00→21:18)
[2017-07-26] MEDS: CYCLOBENZAPRINE HCL 10 MG TABLET (FP) PO SCH ×3 (07:00→21:18)
[2017-07-26 10:08] LABS: HEMATOCRIT 36.4 % (35.4-49); HEMOGLOBIN 12.4 GM/dL (11.7-16.9); MCH 28.8 pg (25.7-33.7); MEAN CELL VOLUME 84.5 fl (80-96); MEAN PLT VOLUME 8.2 fl (7.5-11.1); PLATELET COUNT 233 K/MM3 (134-434); RDW 13.7 % (11.9-15.9); WHITE BLOOD COUNT 4.6 K/mm3 (4.0-10.0)
[2017-07-26] MEDS: NICOTINE 21 MG/24 HOURS TOPICAL PATCH TD SCH (11:00)
[2017-07-26] MEDS: NAPROXEN 500 MG TABLET (FP) PO SCH ×2 (11:00→21:18)
[2017-07-26] MEDS: PRENATAL VITAMINS W/ FOLIC ACID TABLET (FP) PO SCH (11:00)
[2017-07-26] MEDS: cloNIDine HCL 0.1 MG TABLET PO SCH ×2 (11:00→21:18)
[2017-07-26] MEDS: HYDROCORTISONE 1% TOPICAL OINT 30 GM TUBE TP SCH ×2 (11:00→21:18)
[2017-07-26] MEDS: PANTOPRAZOLE 40 MG TABLET (FP) PO SCH (11:00)
[2017-07-26 11:02] LABS: CHLORIDE 105 mmol/L (98-107); POTASSIUM 4.2 mmol/L (3.5-5.1); SODIUM 140 mmol/L (136-145)
[2017-07-26 11:11] LABS: ALBUMIN 3.5 g/dl (3.4-5.0); ALK PHOS 71 U/L (45-117); ANION GAP 8 (8-16); BILIRUBIN,TOTAL 0.5 mg/dL (0.2-1.0); BLOOD UREA NITROGEN 24 mg/dL (7-18); CALCIUM 8.5 mg/dL (8.5-10.1); CO2 27 mmol/L (21-32); CREATININE 1.1 mg/dL (0.7-1.3); GLUCOSE,RANDOM 97 mg/dL (74-106); SGOT/AST 12 U/L (15-37); SGPT/ALT 20 U/L (12-78); TOT PROT 6.6 g/dl (6.4-8.2)
--- NOTE | 2017-07-26 11:43 | EKG ---
Test Reason : Blood Pressure : / mmHG Vent. Rate : 066 BPM Atrial Rate : 066 BPM P-R Int : 134 ms QRS Dur : 090 ms QT Int : 418 ms P-R-T Axes : 028 039 022 degrees QTc Int : 438 ms NORMAL SINUS RHYTHM NORMAL ECG WHEN COMPARED WITH ECG OF 20-JUL-2017 13:13, NO SIGNIFICANT CHANGE WAS FOUND Confirmed by BRANDI ORDAZ MD ([id number]) on 07/26/2017 11:42:40 AM Referred By: Confirmed By:BRANDI ORDAZ MD
[2017-07-26] MEDS: hydrOXYzine PAMOATE 50 MG CAPSULE (FP) PO PRN (14:20)
--- NOTE | 2017-07-26 15:38 | HP ---
Psychiatrist Admission - Data Date of interview: 07/26/17 Admission source: 3N Identifying data: This is the second 5n inpatient rehabilitation admission for this 40 year old single male father of 2, unemployed and undomiciled. Medical History: Patient reports a good health,smokes cigarettes 20 a day. Psychiatric History: Patient denies history of psychiatric treatment, reports he is anxious and unable to sleep, started Vistiral 100 mg po q 4 hrs and Elavil 25 mg po hs. Vital Signs: Vital Signs - 24 hr 07/25/17 07/25/17 07/26/17 15:48 22:48 00:57 Temperature 98 F Pulse Rate 92 H 74 Respiratory 18 18 16 Rate Blood Pressure 132/84 113/72 07/26/17 07/26/17 03:30 07:13 Temperature 97.6 F Pulse Rate 63 Respiratory 16 16 Rate Blood Pressure 97/65 Allergies/Adverse Reactions: Allergies Allergy/AdvReac Type Severity Reaction Status Date / Time No Known Allergies Allergy Verified 07/26/17 05:07 Date of last physical exam: 07/20/17 Concur with the findings of this exam: Yes - Substance Abuse/Tx History Hx Alcohol Use: Yes Hx Substance Use: Yes Substance Use Type: Alcohol (kay hernandez 1 pint), Cocaine (injecting daily $40) , Heroin (injecting up to 20 bags daily), Tranquilizers (xanax 4 mg daily) Hx Substance Use Treatment: Yes (5N in 2003) Mental Status Exam - Mental Status Exam Alert and Oriented to: Time, Place, Person Cognitive Function: Good Patient Appearance: Unkempt (poor dental hygiene) Mood: Sad, Anxious Affect: Appropriate, Mood Congruent Patient Behavior: Appropriate, Cooperative Speech Pattern: Clear, Appropriate Voice Loudness: Normal Thought Process: Intact Thought Disorder: Not Present Hallucinations: Denies Suicidal Ideation: Denies Homicidal Ideation: Denies Insight/Judgement: Fair Sleep: Poorly, Difficulty falling asleep Appetite: Fair Muscle strength/Tone: Normal Gait/Station: Normal Psychiatric Findings - Problem List ([place] 1, 2,3) (1) Opioid dependence Current Visit: Yes Status: Acute (2) Nicotine dependence Current Visit: No Status: Chronic Qualifiers: Nicotine product type: cigarettes (3) Cocaine dependence Current Visit: Yes Status: Acute (4) Insomnia Current Visit: No Status: Acute - Initial Treatment Plan Initial Treatment Plan: Will continue Elavil and Vistaril, monitor progress. Psychoeducation and sleep hygiene discussed with the patient.
[2017-07-26] MEDS: DOCUSATE SODIUM 100 MG CAPSULE (FP) PO SCH (21:18)
[2017-07-26] MEDS: AMITRIPTYLINE HCL 25 MG TABLET (FP) PO SCH (21:18)
[2017-07-26] MEDS: THIAMINE HCL 100 MG TABLET (FP) PO SCH (21:19)
[2017-07-27] MEDS: GABAPENTIN 100 MG CAPSULE (FP) PO SCH ×3 (06:15→21:21)
[2017-07-27] MEDS: CYCLOBENZAPRINE HCL 10 MG TABLET (FP) PO SCH ×3 (06:15→21:22)
[2017-07-27 09:59] LABS: URINE APPEARANCE TURBID; URINE BILIRUBIN NEGATIVE (NEGATIVE); URINE BLOOD NEGATIVE (NEGATIVE); URINE COLOR YELLOW; URINE GLUCOSE (UA) NEGATIVE (NEGATIVE); URINE KETONE NEGATIVE (NEGATIVE); URINE LEUK ESTERASE NEGATIVE (NEGATIVE); URINE NITRITE NEGATIVE (NEGATIVE); URINE PROTEIN NEGATIVE (NEGATIVE); URINE UROBILINOGEN NEGATIVE mg/dL (0.2-1.0)
[2017-07-27] MEDS: NICOTINE 21 MG/24 HOURS TOPICAL PATCH TD SCH (10:00)
[2017-07-27] MEDS: cloNIDine HCL 0.1 MG TABLET PO SCH ×2 (10:00→21:21)
[2017-07-27] MEDS: PANTOPRAZOLE 40 MG TABLET (FP) PO SCH (10:00)
[2017-07-27] MEDS: PRENATAL VITAMINS W/ FOLIC ACID TABLET (FP) PO SCH (10:00)
[2017-07-27] MEDS: NAPROXEN 500 MG TABLET (FP) PO SCH ×2 (10:00→21:22)
[2017-07-27] MEDS: hydrOXYzine PAMOATE 50 MG CAPSULE (FP) PO PRN ×2 (10:00→18:17)
[2017-07-27] MEDS: HYDROCORTISONE 1% TOPICAL OINT 30 GM TUBE TP SCH ×2 (10:01→21:22)
--- NOTE | 2017-07-27 14:52 | PN ---
[facility] Progress Note (SOAP) Subjective: requesting suboxoen mat for oud still has opioid withdrawwl sx w cravings desire to use not relieve w sympotmatic medications Objective: 07/27/17 14:50 Vital Signs - 24 hr 07/26/17 07/27/17 07/27/17 22:00 03:30 06:44 Temperature 97.8 F Pulse Rate 78 66 Respiratory 18 18 Rate Blood Pressure 106/73 99/56 07/27/17 10:00 Temperature Pulse Rate 82 Respiratory 18 Rate Blood Pressure 117/67 Laboratory Tests 07/25/17 07/26/17 07/26/17 07:00 07:00 07:00 WBC 4.6 RBC 4.30 Hgb 12.4 Hct 36.4 MCV 84.5 MCH 28.8 MCHC 34.0 RDW 13.7 Plt Count 233 MPV 8.2 D Sodium 140 Potassium 4.2 Chloride 105 Carbon Dioxide 27 Anion Gap 8 BUN 24 H D Creatinine 1.1 Creat Clearance w eGFR > 60 Random Glucose 97 Calcium 8.5 Total Bilirubin 0.5 D AST 12 L D ALT 20 Alkaline Phosphatase 71 Total Protein 6.6 Albumin 3.5 Urine Color Urine Appearance Urine pH Ur Specific [place] Urine Protein Urine Glucose (UA) Urine Ketones Urine Blood Urine Nitrite Urine Bilirubin Urine Urobilinogen Ur Leukocyte Esterase RPR Titer HIV 1&2 Antibody Screen Negative HIV P24 Antigen Negative 07/26/17 07/27/17 07:00 07:00 WBC RBC Hgb Hct MCV MCH MCHC RDW Plt Count MPV Sodium Potassium Chloride Carbon Dioxide Anion Gap BUN Creatinine Creat Clearance w eGFR Random Glucose Calcium Total Bilirubin AST ALT Alkaline Phosphatase Total Protein Albumin Urine Color Yellow Urine Appearance Turbid Urine pH 7.0 Ur Specific [place] 1.016 Urine Protein Negative Urine Glucose (UA) Negative Urine Ketones Negative Urine Blood Negative Urine Nitrite Negative Urine Bilirubin Negative Urine Urobilinogen Negative Ur Leukocyte Esterase Negative RPR Titer Nonreactive HIV 1&2 Antibody Screen HIV P24 Antigen Assessment: 07/27/17 14:51 oud - start on mat w subxoone 4mg daiy, will reassess for aequate dosing on sunday, arranging for [facility] customer service at [facility].
[2017-07-27] MEDS ORDERED: BUPRENORPHINE/NALOXONE 2 MG/0.5 MG FILM PACKET SL SCH (15:00)
[2017-07-27] MEDS: BUPRENORPHINE/NALOXONE 2 MG/0.5 MG FILM PACKET SL SCH (15:45)
[2017-07-27] MEDS: DOCUSATE SODIUM 100 MG CAPSULE (FP) PO SCH (21:21)
[2017-07-27] MEDS: THIAMINE HCL 100 MG TABLET (FP) PO SCH (21:21)
[2017-07-27] MEDS: AMITRIPTYLINE HCL 25 MG TABLET (FP) PO SCH (21:21)
[2017-07-28] MEDS: GABAPENTIN 100 MG CAPSULE (FP) PO SCH ×3 (06:54→21:12)
[2017-07-28] MEDS: CYCLOBENZAPRINE HCL 10 MG TABLET (FP) PO SCH ×3 (06:54→21:12)
[2017-07-28] MEDS: hydrOXYzine PAMOATE 50 MG CAPSULE (FP) PO PRN ×4 (06:54→19:43)
[2017-07-28] MEDS: NAPROXEN 500 MG TABLET (FP) PO SCH ×2 (09:55→21:12)
[2017-07-28] MEDS: HYDROCORTISONE 1% TOPICAL OINT 30 GM TUBE TP SCH ×2 (09:56→21:12)
[2017-07-28] MEDS: PANTOPRAZOLE 40 MG TABLET (FP) PO SCH (09:56)
[2017-07-28] MEDS: BUPRENORPHINE/NALOXONE 2 MG/0.5 MG FILM PACKET SL SCH (09:56)
[2017-07-28] MEDS: cloNIDine HCL 0.1 MG TABLET PO SCH ×2 (09:56→21:12)
[2017-07-28] MEDS: PRENATAL VITAMINS W/ FOLIC ACID TABLET (FP) PO SCH (09:56)
[2017-07-28] MEDS: NICOTINE 21 MG/24 HOURS TOPICAL PATCH TD SCH (11:08)
[2017-07-28] MEDS: DOCUSATE SODIUM 100 MG CAPSULE (FP) PO SCH (21:12)
[2017-07-28] MEDS: AMITRIPTYLINE HCL 25 MG TABLET (FP) PO SCH (21:12)
[2017-07-28] MEDS: THIAMINE HCL 100 MG TABLET (FP) PO SCH (21:12)
[2017-07-29] MEDS: CYCLOBENZAPRINE HCL 10 MG TABLET (FP) PO SCH ×3 (06:48→21:12)
[2017-07-29] MEDS: GABAPENTIN 100 MG CAPSULE (FP) PO SCH ×3 (06:48→21:18)
[2017-07-29] MEDS: PANTOPRAZOLE 40 MG TABLET (FP) PO SCH (10:14)
[2017-07-29] MEDS: cloNIDine HCL 0.1 MG TABLET PO SCH ×2 (10:14→21:12)
[2017-07-29] MEDS: NAPROXEN 500 MG TABLET (FP) PO SCH ×2 (10:14→21:12)
[2017-07-29] MEDS: PRENATAL VITAMINS W/ FOLIC ACID TABLET (FP) PO SCH (10:14)
[2017-07-29] MEDS: NICOTINE 21 MG/24 HOURS TOPICAL PATCH TD SCH (10:14)
[2017-07-29] MEDS: BUPRENORPHINE/NALOXONE 2 MG/0.5 MG FILM PACKET SL SCH (10:15)
[2017-07-29] MEDS: HYDROCORTISONE 1% TOPICAL OINT 30 GM TUBE TP SCH ×2 (10:15→21:12)
[2017-07-29] MEDS: hydrOXYzine PAMOATE 50 MG CAPSULE (FP) PO PRN ×3 (10:17→21:13)
[2017-07-29] MEDS: AMITRIPTYLINE HCL 25 MG TABLET (FP) PO SCH (21:12)
[2017-07-29] MEDS: DOCUSATE SODIUM 100 MG CAPSULE (FP) PO SCH (21:12)
[2017-07-29] MEDS: THIAMINE HCL 100 MG TABLET (FP) PO SCH (21:12)
[2017-07-30] MEDS: CYCLOBENZAPRINE HCL 10 MG TABLET (FP) PO SCH ×3 (06:29→21:14)
[2017-07-30] MEDS: GABAPENTIN 100 MG CAPSULE (FP) PO SCH ×3 (06:29→21:14)
[2017-07-30] MEDS: hydrOXYzine PAMOATE 50 MG CAPSULE (FP) PO PRN ×2 (08:31→21:15)
[2017-07-30] MEDS: HYDROCORTISONE 1% TOPICAL OINT 30 GM TUBE TP SCH ×2 (10:05→21:18)
[2017-07-30] MEDS: PRENATAL VITAMINS W/ FOLIC ACID TABLET (FP) PO SCH (10:05)
[2017-07-30] MEDS: BUPRENORPHINE/NALOXONE 2 MG/0.5 MG FILM PACKET SL SCH (10:05)
[2017-07-30] MEDS: NAPROXEN 500 MG TABLET (FP) PO SCH ×2 (10:05→21:14)
[2017-07-30] MEDS: PANTOPRAZOLE 40 MG TABLET (FP) PO SCH (10:05)
[2017-07-30] MEDS: NICOTINE 21 MG/24 HOURS TOPICAL PATCH TD SCH (10:05)
[2017-07-30] MEDS: cloNIDine HCL 0.1 MG TABLET PO SCH (11:00)
[2017-07-30] MEDS: DOCUSATE SODIUM 100 MG CAPSULE (FP) PO SCH (21:14)
[2017-07-30] MEDS: AMITRIPTYLINE HCL 25 MG TABLET (FP) PO SCH (21:14)
[2017-07-30] MEDS: THIAMINE HCL 100 MG TABLET (FP) PO SCH (21:14)
[2017-07-31] MEDS: CYCLOBENZAPRINE HCL 10 MG TABLET (FP) PO SCH ×3 (06:21→21:15)
[2017-07-31] MEDS: GABAPENTIN 100 MG CAPSULE (FP) PO SCH ×3 (06:21→21:15)
[2017-07-31] MEDS: hydrOXYzine PAMOATE 50 MG CAPSULE (FP) PO PRN ×2 (07:45→17:23)
[2017-07-31] MEDS: HYDROCORTISONE 1% TOPICAL OINT 30 GM TUBE TP SCH ×2 (10:12→21:15)
[2017-07-31] MEDS: BUPRENORPHINE/NALOXONE 2 MG/0.5 MG FILM PACKET SL SCH (10:12)
[2017-07-31] MEDS: PANTOPRAZOLE 40 MG TABLET (FP) PO SCH (10:12)
[2017-07-31] MEDS: NAPROXEN 500 MG TABLET (FP) PO SCH ×2 (10:12→21:14)
[2017-07-31] MEDS: NICOTINE 21 MG/24 HOURS TOPICAL PATCH TD SCH (10:12)
[2017-07-31] MEDS: PRENATAL VITAMINS W/ FOLIC ACID TABLET (FP) PO SCH (10:13)
--- NOTE | 2017-07-31 14:35 | PN ---
Psychiatric Progress Note Vital Signs: Vital Signs Period Temp Pulse Resp BP Sys/Pack Pulse Ox Last 24 Hr 97.4 F 69 18-18 107/75 Date of Session: 07/31/17 Chief Complaint:: insmonia HPI: Patient is addressing opioid, cocaine, nicotine dependence comorbid insomnia. ROS: WNL Current Medications: Active Medications Generic Name Dose Route Start Last Admin Trade Name Freq PRN Reason Stop Dose Admin Acetaminophen 650 mg 07/25/17 17:17 07/30/17 08:43 Tylenol - PO 650 mg Q4H PRN Administration FEVER Al Hydroxide/Mg Hydroxide 30 ml 07/25/17 17:17 Mylanta Oral Suspension - PO Q6H PRN DYSPEPSIA Amitriptyline HCl 50 mg 07/31/17 14:31 Elavil - PO HS FANI Buprenorphine/Naloxone 2 each 07/27/17 15:00 07/31/17 10:12 Suboxone 2mg/0.5mg Sl Film - SL 08/03/17 14:59 2 each DAILY FANI Administration Colloidal Oatmeal 1 applic 07/25/17 17:25 07/29/17 14:11 Aveeno Soap - TP 1 applic DAILY PRN Administration HYGEINE Cyclobenzaprine HCl 10 mg 07/25/17 22:00 07/31/17 14:18 Flexeril - PO 10 mg TID FANI Administration Docusate Sodium 300 mg 07/25/17 22:00 07/30/17 21:14 Colace - PO 300 mg HS FANI Administration Eucalyptus/Menthol/Phenol/Sorbitol 1 each 07/25/17 17:17 Cepastat Lozenge - MM Q4H PRN SORE THROAT Gabapentin 100 mg 07/25/17 22:00 07/31/17 14:18 Neurontin - PO 100 mg TID FANI Administration Guaifenesin 10 ml 07/25/17 17:17 Robitussin Dm - PO Q6H PRN COUGH Hydrocortisone 1 applic 07/25/17 22:00 07/31/17 10:12 Hytone 1% Ointment - TP Not Given BID FANI Hydroxyzine Pamoate 100 mg 07/25/17 17:17 07/31/17 07:45 Vistaril - PO 100 mg Q4H PRN Administration AGITATION Loperamide HCl 4 mg 07/25/17 17:17 Imodium - PO Q6H PRN DIARRHEA Magnesium Citrate 300 ml 07/25/17 17:17 Citroma - PO Q48H PRN CONSTIPATION Magnesium Hydroxide 30 ml 07/25/17 17:17 Milk Of Magnesia - PO DAILY PRN CONSTIPATION Naproxen 500 mg 07/25/17 22:00 07/31/17 10:12 Naprosyn - PO 500 mg BID FANI Administration Nicotine 21 mg 07/25/17 19:15 07/31/17 10:12 Nicoderm Patch - TD Not Given DAILY FANI Nicotine Polacrilex 4 mg 07/25/17 17:17 Nicorette Gum - BC Q2H PRN NICOTINE REPLACEMENT RX Ondansetron HCl 8 mg 07/25/17 17:19 Zofran Odt - SL Q6H PRN NAUSEA AND/OR VOMITING Pantoprazole Sodium 40 mg 07/25/17 19:15 07/31/17 10:12 Protonix - PO 40 mg DAILY FANI Administration Multivit/Folic Acid/Iron 1 tab 07/26/17 10:00 07/31/17 10:13 Vitamins (Sjr) - PO 1 tab DAILY FANI Administration Pseudoephedrine/Triprolidine 1 combo 07/25/17 17:17 Actifed - PO TID PRN NASAL CONGESTION Thiamine HCl 100 mg 07/25/17 22:00 07/30/17 21:14 Vitamin B1 - PO 100 mg HS FANI Administration Current Side Effect: No Lab tests ordered: No Lab tests reviewed: Yes Provider note:: Patient generally adjusted well to the unit, attends and participates in groups, he was seen today due to his c/o insomnia, reviewed medications with the Dr.Seewald brady started elavil 25 mg po hs, patient reports that not effective, will increase to 50 mg po hs, continue to monitor progress. Total face to face time:: 15 Mental Status Exam - Mental Status Exam Alert and Oriented to: Time, Place, Person Cognitive Function: Good Patient Appearance: Well Groomed Mood: Sad Affect: Appropriate, Mood Congruent Patient Behavior: Cooperative Speech Pattern: Appropriate Voice Loudness: Normal Thought Process: Intact, Goal Oriented Thought Disorder: Not Present Hallucinations: Denies Suicidal Ideation: Denies Homicidal Ideation: Denies Insight/Judgement: Fair Sleep: Poorly, Difficulty falling asleep Appetite: Fair Muscle strength/Tone: Normal Gait/Station: Normal Psychiatric Treatment Plan - Problem List (1) Opioid dependence Current Visit: Yes (2) Nicotine dependence Current Visit: No Qualifiers: Nicotine product type: cigarettes (3) Cocaine dependence Current Visit: Yes (4) Insomnia Current Visit: No
[2017-07-31] MEDS: THIAMINE HCL 100 MG TABLET (FP) PO SCH (21:14)
[2017-07-31] MEDS: AMITRIPTYLINE HCL 25 MG TABLET (FP) PO SCH (21:14)
[2017-07-31] MEDS: DOCUSATE SODIUM 100 MG CAPSULE (FP) PO SCH (21:15)
[2017-08-01] MEDS: GABAPENTIN 100 MG CAPSULE (FP) PO SCH ×3 (06:39→21:15)
[2017-08-01] MEDS: CYCLOBENZAPRINE HCL 10 MG TABLET (FP) PO SCH ×3 (06:39→21:15)
[2017-08-01] MEDS: hydrOXYzine PAMOATE 50 MG CAPSULE (FP) PO PRN ×2 (06:41→14:44)
[2017-08-01] MEDS: NAPROXEN 500 MG TABLET (FP) PO SCH ×2 (10:13→21:15)
[2017-08-01] MEDS: PANTOPRAZOLE 40 MG TABLET (FP) PO SCH (10:13)
[2017-08-01] MEDS: PRENATAL VITAMINS W/ FOLIC ACID TABLET (FP) PO SCH (10:13)
[2017-08-01] MEDS: BUPRENORPHINE/NALOXONE 2 MG/0.5 MG FILM PACKET SL SCH (10:13)
[2017-08-01] MEDS: NICOTINE 21 MG/24 HOURS TOPICAL PATCH TD SCH (10:14)
[2017-08-01] MEDS: HYDROCORTISONE 1% TOPICAL OINT 30 GM TUBE TP SCH ×2 (10:14→21:16)
[2017-08-01] MEDS: THIAMINE HCL 100 MG TABLET (FP) PO SCH (21:15)
[2017-08-01] MEDS: AMITRIPTYLINE HCL 25 MG TABLET (FP) PO SCH (21:15)
[2017-08-01] MEDS: DOCUSATE SODIUM 100 MG CAPSULE (FP) PO SCH (21:15)
[2017-08-02] MEDS: GABAPENTIN 100 MG CAPSULE (FP) PO SCH ×3 (06:27→21:12)
[2017-08-02] MEDS: CYCLOBENZAPRINE HCL 10 MG TABLET (FP) PO SCH ×3 (06:27→21:12)
[2017-08-02] MEDS: PANTOPRAZOLE 40 MG TABLET (FP) PO SCH (10:03)
[2017-08-02] MEDS: NAPROXEN 500 MG TABLET (FP) PO SCH ×2 (10:03→21:12)
[2017-08-02] MEDS: PRENATAL VITAMINS W/ FOLIC ACID TABLET (FP) PO SCH (10:03)
[2017-08-02] MEDS: NICOTINE 21 MG/24 HOURS TOPICAL PATCH TD SCH (10:03)
[2017-08-02] MEDS: hydrOXYzine PAMOATE 50 MG CAPSULE (FP) PO PRN (10:04)
[2017-08-02] MEDS: BUPRENORPHINE/NALOXONE 2 MG/0.5 MG FILM PACKET SL SCH (10:04)
[2017-08-02] MEDS: HYDROCORTISONE 1% TOPICAL OINT 30 GM TUBE TP SCH ×2 (10:04→21:13)
[2017-08-02] MEDS: THIAMINE HCL 100 MG TABLET (FP) PO SCH (21:12)
[2017-08-02] MEDS: DOCUSATE SODIUM 100 MG CAPSULE (FP) PO SCH (21:12)
[2017-08-02] MEDS: AMITRIPTYLINE HCL 25 MG TABLET (FP) PO SCH (21:12)
[2017-08-03] MEDS: CYCLOBENZAPRINE HCL 10 MG TABLET (FP) PO SCH ×3 (06:43→21:15)
[2017-08-03] MEDS: GABAPENTIN 100 MG CAPSULE (FP) PO SCH ×3 (06:43→21:15)
[2017-08-03] MEDS: NICOTINE 21 MG/24 HOURS TOPICAL PATCH TD SCH (10:00)
[2017-08-03] MEDS: PANTOPRAZOLE 40 MG TABLET (FP) PO SCH (10:00)
[2017-08-03] MEDS: BUPRENORPHINE/NALOXONE 2 MG/0.5 MG FILM PACKET SL SCH (10:00)
[2017-08-03] MEDS: NAPROXEN 500 MG TABLET (FP) PO SCH ×2 (10:00→21:15)
[2017-08-03] MEDS: HYDROCORTISONE 1% TOPICAL OINT 30 GM TUBE TP SCH ×2 (10:00→21:16)
[2017-08-03] MEDS: PRENATAL VITAMINS W/ FOLIC ACID TABLET (FP) PO SCH (10:00)
[2017-08-03] MEDS: hydrOXYzine PAMOATE 50 MG CAPSULE (FP) PO PRN (10:01)
--- NOTE | 2017-08-03 16:44 | PN ---
[facility] Progress Note Note: Patient requested decrease in Suboxone from 4mg to 2mg. Report withdrawal symptoms and cravings have improve. As per patent he wishes to latasha of the Suboxone. Vital Signs Temperature 97.6 F 08/03/17 06:49 Pulse Rate 72 08/03/17 06:49 Respiratory Rate 16 08/03/17 06:49 Blood Pressure 100/75 08/03/17 06:49 O2 Sat by Pulse Oximetry (%) Laboratory Last Values WBC 4.6 K/mm3 (4.0-10.0) 07/26/17 07:00 RBC 4.30 M/mm3 (4.00-5.60) 07/26/17 07:00 Hgb 12.4 GM/dL (11.7-16.9) 07/26/17 07:00 Hct 36.4 % (35.4-49) 07/26/17 07:00 MCV 84.5 fl (80-96) 07/26/17 07:00 MCH 28.8 pg (25.7-33.7) 07/26/17 07:00 MCHC 34.0 g/dl (32.0-35.9) 07/26/17 07:00 RDW 13.7 % (11.9-15.9) 07/26/17 07:00 Plt Count 233 K/MM3 (134-434) 07/26/17 07:00 MPV 8.2 fl (7.5-11.1) D 07/26/17 07:00 Sodium 140 mmol/L (136-145) 07/26/17 07:00 Potassium 4.2 mmol/L (3.5-5.1) 07/26/17 07:00 Chloride 105 mmol/L (98-107) 07/26/17 07:00 Carbon Dioxide 27 mmol/L (21-32) 07/26/17 07:00 Anion Gap 8 (8-16) 07/26/17 07:00 BUN 24 mg/dL (7-18) H D 07/26/17 07:00 Creatinine 1.1 mg/dL (0.7-1.3) 07/26/17 07:00 Creat Clearance w eGFR > 60 (>60) 07/26/17 07:00 Random Glucose 97 mg/dL (74-106) 07/26/17 07:00 Calcium 8.5 mg/dL (8.5-10.1) 07/26/17 07:00 Total Bilirubin 0.5 mg/dL (0.2-1.0) D 07/26/17 07:00 AST 12 U/L (15-37) L D 07/26/17 07:00 ALT 20 U/L (12-78) 07/26/17 07:00 Alkaline Phosphatase 71 U/L (45-117) 07/26/17 07:00 Total Protein 6.6 g/dl (6.4-8.2) 07/26/17 07:00 Albumin 3.5 g/dl (3.4-5.0) 07/26/17 07:00 Urine Color Yellow 07/27/17 07:00 Urine Appearance Turbid 07/27/17 07:00 Urine pH 7.0 (5.0-8.0) 07/27/17 07:00 Ur Specific [place] 1.016 (1.001-1.035) 07/27/17 07:00 Urine Protein Negative (NEGATIVE) 07/27/17 07:00 Urine Glucose (UA) Negative (NEGATIVE) 07/27/17 07:00 Urine Ketones Negative (NEGATIVE) 07/27/17 07:00 Urine Blood Negative (NEGATIVE) 07/27/17 07:00 Urine Nitrite Negative (NEGATIVE) 07/27/17 07:00 Urine Bilirubin Negative (NEGATIVE) 07/27/17 07:00 Urine Urobilinogen Negative mg/dL (0.2-1.0) 07/27/17 07:00 Ur Leukocyte Esterase Negative (NEGATIVE) 07/27/17 07:00 RPR Titer Nonreactive (NONREACTIVE) 07/26/17 07:00 HIV 1&2 Antibody Screen Negative 07/25/17 07:00 HIV P24 Antigen Negative 07/25/17 07:00 Patient AOx 3, in no apparent distress Ambulating without difficulties in the unit No SOB or adventitious breath sounds HR and Rhythm within normal limits Plan: Increase fluids Decrease Suboxone to 2 mg effective 08/04/17. Continue to monitor and adjust dosage as needed
[2017-08-03] MEDS: AMITRIPTYLINE HCL 25 MG TABLET (FP) PO SCH (21:15)
[2017-08-03] MEDS: DOCUSATE SODIUM 100 MG CAPSULE (FP) PO SCH (21:15)
[2017-08-03] MEDS: THIAMINE HCL 100 MG TABLET (FP) PO SCH (21:15)
[2017-08-04] MEDS: CYCLOBENZAPRINE HCL 10 MG TABLET (FP) PO SCH ×3 (06:49→21:12)
[2017-08-04] MEDS: GABAPENTIN 100 MG CAPSULE (FP) PO SCH ×3 (06:49→21:12)
[2017-08-04] MEDS: hydrOXYzine PAMOATE 50 MG CAPSULE (FP) PO PRN ×2 (06:50→14:23)
[2017-08-04] MEDS: PRENATAL VITAMINS W/ FOLIC ACID TABLET (FP) PO SCH (09:41)
[2017-08-04] MEDS: NAPROXEN 500 MG TABLET (FP) PO SCH ×2 (09:41→21:12)
[2017-08-04] MEDS: PANTOPRAZOLE 40 MG TABLET (FP) PO SCH (09:41)
[2017-08-04] MEDS: BUPRENORPHINE/NALOXONE 2 MG/0.5 MG FILM PACKET SL SCH (09:41)
[2017-08-04] MEDS: NICOTINE 21 MG/24 HOURS TOPICAL PATCH TD SCH (09:41)
[2017-08-04] MEDS: HYDROCORTISONE 1% TOPICAL OINT 30 GM TUBE TP SCH ×2 (09:42→21:13)
[2017-08-04] MEDS: THIAMINE HCL 100 MG TABLET (FP) PO SCH (21:12)
[2017-08-04] MEDS: AMITRIPTYLINE HCL 25 MG TABLET (FP) PO SCH (21:12)
[2017-08-04] MEDS: DOCUSATE SODIUM 100 MG CAPSULE (FP) PO SCH (21:12)
[2017-08-05] MEDS: GABAPENTIN 100 MG CAPSULE (FP) PO SCH ×3 (06:34→21:13)
[2017-08-05] MEDS: CYCLOBENZAPRINE HCL 10 MG TABLET (FP) PO SCH ×3 (06:34→21:14)
[2017-08-05] MEDS: NAPROXEN 500 MG TABLET (FP) PO SCH ×2 (09:46→21:14)
[2017-08-05] MEDS: NICOTINE 21 MG/24 HOURS TOPICAL PATCH TD SCH (09:46)
[2017-08-05] MEDS: HYDROCORTISONE 1% TOPICAL OINT 30 GM TUBE TP SCH ×2 (09:46→21:15)
[2017-08-05] MEDS: PRENATAL VITAMINS W/ FOLIC ACID TABLET (FP) PO SCH (09:46)
[2017-08-05] MEDS: PANTOPRAZOLE 40 MG TABLET (FP) PO SCH (09:46)
[2017-08-05] MEDS: BUPRENORPHINE/NALOXONE 2 MG/0.5 MG FILM PACKET SL SCH (11:00)
[2017-08-05] MEDS: THIAMINE HCL 100 MG TABLET (FP) PO SCH (21:13)
[2017-08-05] MEDS: AMITRIPTYLINE HCL 25 MG TABLET (FP) PO SCH (21:14)
[2017-08-05] MEDS: DOCUSATE SODIUM 100 MG CAPSULE (FP) PO SCH (21:14)
[2017-08-06] MEDS: GABAPENTIN 100 MG CAPSULE (FP) PO SCH ×3 (06:36→21:10)
[2017-08-06] MEDS: CYCLOBENZAPRINE HCL 10 MG TABLET (FP) PO SCH ×3 (06:36→21:10)
[2017-08-06] MEDS: HYDROCORTISONE 1% TOPICAL OINT 30 GM TUBE TP SCH ×2 (10:01→21:11)
[2017-08-06] MEDS: PRENATAL VITAMINS W/ FOLIC ACID TABLET (FP) PO SCH (10:01)
[2017-08-06] MEDS: BUPRENORPHINE/NALOXONE 2 MG/0.5 MG FILM PACKET SL SCH (10:01)
[2017-08-06] MEDS: NAPROXEN 500 MG TABLET (FP) PO SCH ×2 (10:01→21:10)
[2017-08-06] MEDS: PANTOPRAZOLE 40 MG TABLET (FP) PO SCH (10:01)
[2017-08-06] MEDS: NICOTINE 21 MG/24 HOURS TOPICAL PATCH TD SCH (10:02)
[2017-08-06] MEDS: THIAMINE HCL 100 MG TABLET (FP) PO SCH (21:10)
[2017-08-06] MEDS: AMITRIPTYLINE HCL 25 MG TABLET (FP) PO SCH (21:10)
[2017-08-06] MEDS: DOCUSATE SODIUM 100 MG CAPSULE (FP) PO SCH (21:10)
[2017-08-07] MEDS: CYCLOBENZAPRINE HCL 10 MG TABLET (FP) PO SCH (06:14)
[2017-08-07] MEDS: GABAPENTIN 100 MG CAPSULE (FP) PO SCH ×3 (06:14→21:16)
[2017-08-07] MEDS: HYDROCORTISONE 1% TOPICAL OINT 30 GM TUBE TP SCH ×2 (09:51→21:17)
[2017-08-07] MEDS: PRENATAL VITAMINS W/ FOLIC ACID TABLET (FP) PO SCH (09:51)
[2017-08-07] MEDS: NAPROXEN 500 MG TABLET (FP) PO SCH (09:51)
[2017-08-07] MEDS: PANTOPRAZOLE 40 MG TABLET (FP) PO SCH (09:51)
[2017-08-07] MEDS: BUPRENORPHINE/NALOXONE 2 MG/0.5 MG FILM PACKET SL SCH (09:51)
[2017-08-07] MEDS: NICOTINE 21 MG/24 HOURS TOPICAL PATCH TD SCH (09:51)
--- NOTE | 2017-08-07 13:37 | PN ---
[facility] Progress Note Note: suboxone d/c as per patient request
[2017-08-07] MEDS ORDERED: NAPROXEN 500 MG TABLET (FP) PO PRN (13:38)
[2017-08-07] MEDS: CYCLOBENZAPRINE HCL 5 MG TABLET PO SCH ×2 (14:05→21:16)
[2017-08-07] MEDS: DOCUSATE SODIUM 100 MG CAPSULE (FP) PO SCH (21:16)
[2017-08-07] MEDS: THIAMINE HCL 100 MG TABLET (FP) PO SCH (21:16)
[2017-08-07] MEDS: AMITRIPTYLINE HCL 25 MG TABLET (FP) PO SCH (21:16)
[2017-08-08] MEDS: CYCLOBENZAPRINE HCL 5 MG TABLET PO SCH ×3 (06:22→21:11)
[2017-08-08] MEDS: GABAPENTIN 100 MG CAPSULE (FP) PO SCH ×3 (06:22→21:11)
[2017-08-08] MEDS: PANTOPRAZOLE 40 MG TABLET (FP) PO SCH (09:50)
[2017-08-08] MEDS: HYDROCORTISONE 1% TOPICAL OINT 30 GM TUBE TP SCH ×2 (09:50→21:11)
[2017-08-08] MEDS: PRENATAL VITAMINS W/ FOLIC ACID TABLET (FP) PO SCH (09:50)
[2017-08-08] MEDS: NICOTINE 21 MG/24 HOURS TOPICAL PATCH TD SCH (09:50)
[2017-08-08] MEDS: AMITRIPTYLINE HCL 25 MG TABLET (FP) PO SCH (21:11)
[2017-08-08] MEDS: THIAMINE HCL 100 MG TABLET (FP) PO SCH (21:11)
[2017-08-08] MEDS: DOCUSATE SODIUM 100 MG CAPSULE (FP) PO SCH (21:11)
[2017-08-09] MEDS: CYCLOBENZAPRINE HCL 5 MG TABLET PO SCH ×3 (06:07→21:20)
[2017-08-09] MEDS: GABAPENTIN 100 MG CAPSULE (FP) PO SCH ×3 (06:07→21:20)
[2017-08-09] MEDS: PRENATAL VITAMINS W/ FOLIC ACID TABLET (FP) PO SCH (10:19)
[2017-08-09] MEDS: PANTOPRAZOLE 40 MG TABLET (FP) PO SCH (10:19)
[2017-08-09] MEDS: HYDROCORTISONE 1% TOPICAL OINT 30 GM TUBE TP SCH ×2 (10:19→21:21)
[2017-08-09] MEDS: NICOTINE 21 MG/24 HOURS TOPICAL PATCH TD SCH (10:20)
[2017-08-09] MEDS: DOCUSATE SODIUM 100 MG CAPSULE (FP) PO SCH (21:20)
[2017-08-09] MEDS: AMITRIPTYLINE HCL 25 MG TABLET (FP) PO SCH (21:20)
[2017-08-09] MEDS: THIAMINE HCL 100 MG TABLET (FP) PO SCH (21:21)
[2017-08-10] MEDS: GABAPENTIN 100 MG CAPSULE (FP) PO SCH ×3 (06:28→21:16)
[2017-08-10] MEDS: CYCLOBENZAPRINE HCL 5 MG TABLET PO SCH ×3 (06:28→21:16)
[2017-08-10] MEDS: PANTOPRAZOLE 40 MG TABLET (FP) PO SCH (09:50)
[2017-08-10] MEDS: PRENATAL VITAMINS W/ FOLIC ACID TABLET (FP) PO SCH (09:50)
[2017-08-10] MEDS: HYDROCORTISONE 1% TOPICAL OINT 30 GM TUBE TP SCH ×2 (09:51→21:17)
[2017-08-10] MEDS: NICOTINE 21 MG/24 HOURS TOPICAL PATCH TD SCH (09:51)
[2017-08-10] MEDS: THIAMINE HCL 100 MG TABLET (FP) PO SCH (21:16)
[2017-08-10] MEDS: DOCUSATE SODIUM 100 MG CAPSULE (FP) PO SCH (21:16)
[2017-08-10] MEDS: AMITRIPTYLINE HCL 25 MG TABLET (FP) PO SCH (21:16)
[2017-08-11] MEDS: GABAPENTIN 100 MG CAPSULE (FP) PO SCH ×3 (06:18→21:17)
[2017-08-11] MEDS: CYCLOBENZAPRINE HCL 5 MG TABLET PO SCH ×3 (06:18→21:17)
[2017-08-11] MEDS: PRENATAL VITAMINS W/ FOLIC ACID TABLET (FP) PO SCH (09:55)
[2017-08-11] MEDS: HYDROCORTISONE 1% TOPICAL OINT 30 GM TUBE TP SCH ×2 (09:55→21:18)
[2017-08-11] MEDS: PANTOPRAZOLE 40 MG TABLET (FP) PO SCH (09:55)
[2017-08-11] MEDS: NICOTINE 21 MG/24 HOURS TOPICAL PATCH TD SCH (09:56)
[2017-08-11] MEDS ORDERED: PT OWN MED DRAWER 7, Y5N ONE (20:40)
[2017-08-11] MEDS: AMITRIPTYLINE HCL 25 MG TABLET (FP) PO SCH (21:16)
[2017-08-11] MEDS: THIAMINE HCL 100 MG TABLET (FP) PO SCH (21:17)
[2017-08-11] MEDS: DOCUSATE SODIUM 100 MG CAPSULE (FP) PO SCH (21:17)
[2017-08-12] MEDS: CYCLOBENZAPRINE HCL 5 MG TABLET PO SCH ×3 (06:33→21:15)
[2017-08-12] MEDS: GABAPENTIN 100 MG CAPSULE (FP) PO SCH ×3 (06:33→21:15)
[2017-08-12] MEDS: PANTOPRAZOLE 40 MG TABLET (FP) PO SCH (10:03)
[2017-08-12] MEDS: NICOTINE 21 MG/24 HOURS TOPICAL PATCH TD SCH (10:03)
[2017-08-12] MEDS: HYDROCORTISONE 1% TOPICAL OINT 30 GM TUBE TP SCH ×2 (10:03→21:16)
[2017-08-12] MEDS: PRENATAL VITAMINS W/ FOLIC ACID TABLET (FP) PO SCH (10:03)
[2017-08-12] MEDS: DOCUSATE SODIUM 100 MG CAPSULE (FP) PO SCH (21:14)
[2017-08-12] MEDS: AMITRIPTYLINE HCL 25 MG TABLET (FP) PO SCH (21:14)
[2017-08-12] MEDS: THIAMINE HCL 100 MG TABLET (FP) PO SCH (21:15)
[2017-08-13] MEDS: CYCLOBENZAPRINE HCL 5 MG TABLET PO SCH (06:50)
[2017-08-13] MEDS: GABAPENTIN 100 MG CAPSULE (FP) PO SCH (06:50)
[2017-08-13 06:59] VITALS: BP 123/81; PULSE 76; TEMP 98.5
--- NOTE | 2017-08-13 07:54 | PN ---
Psychiatric Progress Note Vital Signs: Vital Signs Period Temp Pulse Resp BP Sys/Pack Pulse Ox Last 24 Hr 98.5 F 76 16-18 123/81 Date of Session: 08/13/17 Chief Complaint:: Discharge Note HPI: Patient addressing Opoid and Cocaine Dependence comorbid with Nicotine Dependence Current Medications: Active Medications Generic Name Dose Route Start Last Admin Trade Name Freq PRN Reason Stop Dose Admin Acetaminophen 650 mg 07/25/17 17:17 07/30/17 08:43 Tylenol - PO 650 mg Q4H PRN Administration FEVER Al Hydroxide/Mg Hydroxide 30 ml 07/25/17 17:17 Mylanta Oral Suspension - PO Q6H PRN DYSPEPSIA Amitriptyline HCl 50 mg 07/31/17 22:00 08/12/17 21:14 Elavil - PO 50 mg HS FANI Administration Colloidal Oatmeal 1 applic 07/25/17 17:25 07/29/17 14:11 Aveeno Soap - TP 1 applic DAILY PRN Administration HYGEINE Cyclobenzaprine HCl 5 mg 08/07/17 14:00 08/13/17 06:50 Cyclobenzaprine Hcl PO 5 mg TID FANI Administration Docusate Sodium 300 mg 07/25/17 22:00 08/12/17 21:14 Colace - PO 300 mg HS FANI Administration Eucalyptus/Menthol/Phenol/Sorbitol 1 each 07/25/17 17:17 Cepastat Lozenge - MM Q4H PRN SORE THROAT Gabapentin 100 mg 07/25/17 22:00 08/13/17 06:50 Neurontin - PO 100 mg TID FANI Administration Guaifenesin 10 ml 07/25/17 17:17 Robitussin Dm - PO Q6H PRN COUGH Hydrocortisone 1 applic 07/25/17 22:00 08/12/17 21:16 Hytone 1% Ointment - TP Not Given BID FANI Hydroxyzine Pamoate 100 mg 07/25/17 17:17 08/04/17 14:23 Vistaril - PO 100 mg Q4H PRN Administration AGITATION Loperamide HCl 4 mg 07/25/17 17:17 Imodium - PO Q6H PRN DIARRHEA Magnesium Citrate 300 ml 07/25/17 17:17 Citroma - PO Q48H PRN CONSTIPATION Magnesium Hydroxide 30 ml 07/25/17 17:17 Milk Of Magnesia - PO DAILY PRN CONSTIPATION Naproxen 500 mg 08/07/17 13:38 08/08/17 09:50 Naprosyn - PO 500 mg BID PRN Administration PAIN LEVEL 1-5 Nicotine 21 mg 07/25/17 19:15 08/12/17 10:03 Nicoderm Patch - TD Not Given DAILY FANI Nicotine Polacrilex 4 mg 07/25/17 17:17 Nicorette Gum - BC Q2H PRN NICOTINE REPLACEMENT RX Ondansetron HCl 8 mg 07/25/17 17:19 Zofran Odt - SL Q6H PRN NAUSEA AND/OR VOMITING Pantoprazole Sodium 40 mg 07/25/17 19:15 08/12/17 10:03 Protonix - PO 40 mg DAILY FANI Administration Multivit/Folic Acid/Iron 1 tab 07/26/17 10:00 08/12/17 10:03 Vitamins (Sjr) - PO 1 tab DAILY FANI Administration Pseudoephedrine/Triprolidine 1 combo 07/25/17 17:17 Actifed - PO TID PRN NASAL CONGESTION Thiamine HCl 100 mg 07/25/17 22:00 08/12/17 21:15 Vitamin B1 - PO 100 mg HS FANI Administration Current Side Effect: No Lab tests ordered: Yes Lab tests reviewed: Yes Provider note:: Patient has completed this program today. He has met his treatment goals and will continue to address his issues in prison residential treament at [facility]. Told screen writer that from his participation in this program, he has learned to stay out of trouble and make meetings. He responded well to Elavil 50 mg po HS. Script for that medication is electronically transmitted to his pharmacy. He is stable for discharge today Total face to face time:: 35 Mental Status Exam - Mental Status Exam Alert and Oriented to: Time, Place, Person Cognitive Function: Fair Patient Appearance: Well Groomed Mood: Hopeful, Euthymic Affect: Appropriate Patient Behavior: Cooperative Speech Pattern: Clear Voice Loudness: Normal Thought Process: Intact, Goal Oriented Thought Disorder: Not Present Hallucinations: Denies Suicidal Ideation: Denies Homicidal Ideation: Denies Insight/Judgement: Fair Sleep: Fair Appetite: Good Muscle strength/Tone: Normal Gait/Station: Normal Psychiatric Treatment Plan - Problem List (1) Opioid dependence Current Visit: Yes (2) Cocaine dependence Current Visit: Yes (3) Nicotine dependence Current Visit: No Qualifiers: Nicotine product type: cigarettes Initial treatment plan: Patient is discharged today and referrred to [facility] for slasher tender residential treatment
== END 2017-08-13 08:00 | disposition home or self-care (01) | DRG 772 ==
LOC: YASAS 15:19 → Y5N 18:55
PROVIDERS: ADMIT Psychiatry & Neurology Psychiatry; ATTEND Psychiatry & Neurology Psychiatry
PROC: HZ42ZZZ Group Counseling for Substance Abuse Treatment, Cognitive-Behavioral (ICD-10-PCS; principal; 2017-07-23)
DX: F11.20 Opioid dependence, uncomplicated (principal); F12.20 Cannabis dependence, uncomplicated; F17.210 Nicotine dependence, cigarettes, uncomplicated; F32.9 Major depressive disorder, single episode, unspecified; G47.00 Insomnia, unspecified; E86.0 Dehydration
CPT/HCPCS: 36415; 80053; 81003; 85027; 86593; 87389; 93005; 93010; J0735